=== PATIENT | female | born 1950 | race African-American/Black ===

== ENCOUNTER 2018-02-04 12:21 | Inpatient (IN) | payer MEDICARE, OTHER ==
[~2018-02-04] VITALS: Ht 162.6 cm; Wt 69.8 kg
--- NOTE | ~2018-02-04 | EKG ---
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: Slava REMY : 1950 Requested By: Michael Gutiérrez Order Number: [id number] MD: Christopher Osullivan Measurements Intervals [place] Rate: 63 P: 37 AR: 171 QRS: -2 QRSD: 87 T: -10 QT: 425 QTc: 436 Interpretive Statements Sinus rhythm Probable left atrial enlargement Borderline T abnormalities, inferior leads Compared to ECG 02/06/2018 10:09:09 No significant change was found Electronically Signed On 02-07-2018 7:35:38 CDT by Christopher Osullivan [email or web address] <ELECTRONICALLY SIGNED> By: Christopher Osullivan MD, [facility] 02/07/18 0735 1656 1656 Christopher Osullivan MD, [facility] /EPI
--- NOTE | ~2018-02-04 | EKG ---
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: Vanessa ALDANA : 1950 Requested By: Michael Gutiérrez Order Number: [id number] MD: Rao Neely Measurements Intervals [place] Rate: 67 P: 38 DC: 172 QRS: 19 QRSD: 89 T: 0 QT: 417 QTc: 441 Interpretive Statements Sinus rhythm Left atrial enlargement Probable left ventricular hypertrophy Compared to ECG 02/04/2018 14:50:45 Myocardial infarct finding no longer present Electronically Signed On 02-06-2018 16:38:11 CDT by Rao Neely [email or web address] <ELECTRONICALLY SIGNED> By: Rao Neely MD 02/06/18 1638 1009 1009 Rao Neely MD /NIKOLAI
--- NOTE | ~2018-02-04 | HC ---
[facility] [place] [address] CONSULTATION Name: DAVID RUVALCABA Room #: 226-P ADM IN M.R.#: [id number] Admission: 02/04/18 Attend Phys: oTm Sotelo MD Discharge: Date of : 46 Report #: [id number] THIS REPORT FOR: //name// CC: Ash Sotelo DATE OF SERVICE: 02/05/2018 INDICATION: Chest pain. HISTORY OF PRESENT ILLNESS: This is a pleasant 67-year-old female presenting with neck and arm pain. Over the weekend, she developed a sharp pain on the right side of her neck, radiating down the shoulder and right arm. There were no alleviating or aggravating factors. She was able to fall asleep. The next day, the pain had improved. She did take ibuprofen and tramadol. Yesterday, she developed feeling generalized weakness, mild chest discomfort. She denies any episodes of fever, palpitations, or diarrhea. PAST MEDICAL HISTORY: Cardiac catheterization in 2011 revealed nonobstructive CAD. Nuclear stress test from November 2017 is negative for ischemia with normal EF. The echo yesterday reveals normal LV systolic function. History of hypertension, hyperlipidemia. History of peripheral vascular disease with prior stents. History of chronic tobacco use and history of apical variant hypertrophic cardiomyopathy. ALLERGIES: CODEINE, MORPHINE. MEDICATIONS: Livalo 2 mg, albuterol, aspirin, Avalide and Lopressor. SOCIAL HISTORY: Smokes half a pack of cigarettes per day. FAMILY HISTORY: Negative for premature CAD. REVIEW OF SYSTEMS: A full 10-point review of systems performed. Only the pertinent positives and negatives are described in the HPI. PHYSICAL EXAMINATION: VITAL SIGNS: Blood pressure is 150/70, heart rate is 65 beats per minute. GENERAL APPEARANCE: A well-developed, well-nourished female in no acute respiratory distress. HEAD AND EYES: Normocephalic. Sclerae are anicteric. ENT: Oral mucosa moist. NECK: Supple. LUNGS: Clear to auscultation. CARDIAC: RRR. S1, S2 positive. ABDOMEN: Soft, nontender. [facility] [address] [place] [address] CONSULTATION Name: DAVID RUVALCABA JUNIORNoel Room #: 226-P [facility] IN M.R.#: [id number] Admission: 02/04/18 Attend Phys: Tom Sotelo MD Discharge: Date of : 46 Report #: [id number] EXTREMITIES: No cyanosis, no edema. LABORATORY VALUES: ECG reveals sinus rhythm, nonspecific T-wave abnormality. Peak troponin is 0.08. White count is 10.1, hemoglobin is 10.6. Sodium is 139. ASSESSMENT AND PLAN: 1. Chest pain syndrome, very mild symptoms. I do not believe this is related to a cardiac etiology. It may be more GI related, since she developed the ache after taking ibuprofen. 2. Coronary artery disease/history of nonobstructive coronary artery disease. She had a nuclear stress test 2 months ago that was nonischemic. I will continue with medical therapy. 3. Neck and shoulder pain, more likely related to musculoskeletal or neuropathy. Continue with pain meds. 4. Hypertension, continue with medications. 5. Tobacco use, complete smoking cessation is advised. <ELECTRONICALLY SIGNED> By: Michael Gutiérrez MD 02/06/18 0803 1258 1856 Michael Gutiérrez MD /nt
--- NOTE | ~2018-02-04 | EKG ---
[address] [place] [address] ELECTROCARDIOGRAM REPORT Name: DAVID RUVALCABA Room #: 407-P ADM IN M.R.#: [id number] Admission: 02/04/18 Attend Phys: Tom Sotelo MD Discharge: Date of : 46 Report #: [id number] THIS REPORT FOR: //name// [facility] ED Test Date: 2018-02-04 Test Time: 14:50:45 Pat Name: DAVID RUVALCABA Department: Room: 170 4 Gender: F Participant Administrator: Odette LAWRENCE : 1950 Requested By: Marcia Buenrostro Order Number: [id number] MD: Rao Neeyl Measurements Intervals [place] Rate: 64 P: 35 MA: 184 QRS: -9 QRSD: 88 T: -7 QT: 435 QTc: 449 Interpretive Statements Sinus rhythm Left atrial enlargement Inferior infarct, old Compared to ECG 10/25/2016 11:47:24 Myocardial infarct finding now present Electronically Signed On 02-05-2018 8:12:31 CDT by Rao Neely [email or web address] <ELECTRONICALLY SIGNED> By: Rao Neely MD 02/05/18811 1450 145 Rao Neely MD /NIKOLAI
--- NOTE | ~2018-02-04 | 2DMMODE ---
[facility] [address] [place] [address] 2 D/M-MODE ECHOCARDIOGRAM Name: DAVID RUVALCABA Room #: 407-P ADM IN M.R.#: [id number] Admission: 02/04/18 Attend Phys: Tom Sotelo MD Discharge: Date of : 46 Date of Service: 02/05/18 0958 Report #: [id number] THIS REPORT FOR: //name// APPROVED REPORT Study performed: 02/05/2018 09:09:54 EXAM: Comprehensive 2D, Doppler, and color-flow Echocardiogram Patient Location: Bedside Room #: 407 Status: routine BSA: 1.73 HR: 64 bpm BP: 140/74 mmHg Other Information Study Quality: Adequate Indications CAD Chest Pain Hypertension/HDD 2D Dimensions RVDd: 31.56 mm LVEF(%): 61.80 (>50%) IVSd: 10.49 (7-11mm) LVOT Diam: 19.40 (18-24mm) LVDd: 38.19 mm PWd: 10.43 (7-11mm) Ascending Ao: 25.89 (22-36mm) LVDs: 25.72 (25-40mm) Aortic Root: 24.15 mm IVC: 15.00 mm Ruiz's LVEF: 61.80 % Volumes Left Atrial Volume (Systole) Single Plane 4CH: 47.65 mL Single Plane 2CH: 39.90 mL LA ESV Index: 28.00 mL/m2 Aortic Valve AoV Peak Chicho.: 2.10 m/s AO Peak Gr.: 17.70 mmHg LVOT Max P.42 mmHg AO Mean Gr.: 8.79 mmHg LVOT Mean P.07 mmHg AO V2 Mean: 1.37 m/s LVOT Max V: 1.27 m/s AO V2 VTI: 46.33 cm LVOT Mean V: 0.81 m/s JUAN CARLOS (VTI): 2.09 cm2 LVOT V1 VTI: 32.77 cm JUAN CARLOS Vmax: 1.[address] [facility] [address] [place] [address] 2 D/M-MODE ECHOCARDIOGRAM Name: DAVID RUVALCABA LIBERTYNoel Room #: [facility] IN ..#: [id number] Admission: 02/04/18 Attend Phys: Tom Sotelo MD Discharge: Date of : 46 Date of Service: 02/05/18 0958 Report #: [id number] SV (LVOT): 96.79 mL Mitral Valve E/A Ratio: 0.7 MV Decel. Time: 243.77 ms MV E Max Chicho.: 0.93 m/s MV A Chicho.: 1.31 m/s MV PHT: 70.69 ms IVRT: 65.74 ms Pulmonary Valve PV Peak Chicho.: 1.04 m/s PV Peak Gr.: 4.34 mmHg Pulmonary Vein P Vein S: 0.72 m/s P Vein A: 0.26 m/s P Vein D: 0.44 m/s P Vein A Dur.: 110.7 msec P Vein S/D Ratio: 1.64 Tricuspid Valve TR Peak Chicho.: 2.64 m/s RAP Estimate: 5.00 mmHg TR Peak Gr.: 27.88 mmHg PA Pressure: 33.00 mmHg Left Ventricle The left ventricle is normal size. There is normal LV segmental wall motion. There is normal left ventricular wall thickness. The left ventricular systolic function is normal. The left ventricular ejection fraction is within the normal range. LVEF is 60-65%. Mild diastolic dysfunction is present (impaired relaxation pattern). Right Ventricle The right ventricle is normal size. The right ventricular systolic function is normal. Atria The left atrium size is normal. The right atrium size is normal. Aortic Valve The aortic valve is normal in structure. No aortic regurgitation is present. There is no aortic valvular stenosis. Mitral Valve Mild mitral annular calcification. Trace mitral regurgitation. No evidence [place] [address] 2 D/M-MODE ECHOCARDIOGRAM Name: DAVID RUVALCABA Room #: 407-P ADM IN M.R.#: [id number] Admission: 02/04/18 Attend Phys: Tom Sotelo MD Discharge: Date of : 46 Date of Service: 02/05/18 0958 Report #: [id number] Tricuspid Valve The tricuspid valve is normal in structure. Mild tricuspid regurgitation. PAP is estimated at 33 mmHg. Pulmonic Valve The pulmonary valve is normal in structure. Trace pulmonic regurgitation. Great Vessels The aortic root is normal in size. IVC is normal in size and collapses >50% with inspiration. Pericardium There is no pericardial effusion. <Conclusion> The left ventricular systolic function is normal. There is normal LV segmental wall motion. LVEF 60-65%. The aortic valve is normal in structure. No aortic regurgitation or stenosis Mild mitral annular calcification. Trace mitral regurgitation. Mild tricuspid regurgitation. Pulmonary artery pressure estimated at 33 mmHg. There is no pericardial effusion. <ELECTRONICALLY SIGNED> By: Christopher Osullivan MD, [facility] 02/05/1858 7 Christopher Osullivan MD, [facility] /INF
--- NOTE | ~2018-02-04 | EKG ---
[place] [address] [facility] [place] [address] ELECTROCARDIOGRAM REPORT Name: DAVID RUVALCABA Room #: 239-P ADM IN M.R.#: [id number] Admission: 02/04/18 Attend Phys: Tom Sotelo MD Discharge: Date of : 46 Report #: [id number] THIS REPORT FOR: //name// 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 Director: SALAS : 1950 Requested By: Michael Gutiérrez Order Number: [id number] MD: Christopher Osullivan Measurements Intervals [place] Rate: 66 P: 0 PA: 57 QRS: -50 QRSD: 173 T: 103 QT: 565 QTc: 593 Interpretive Statements A-V dual-paced rhythm with some inhibition No further analysis attempted due to paced rhythm Compared to ECG 02/06/2018 10:09:09 AV pacing now present Electronically Signed On 02-07-2018 7:55:45 CDT by Christopher Osullivan [email or web address] <ELECTRONICALLY SIGNED> By: Christopher Osullivan MD, [facility] 02/07/18 0755 0639 0639 Christopher Osullivan MD, [facility] /EPI
--- NOTE | ~2018-02-04 | CATHLAB ---
[facility] [address] [place] [address] INVASIVE PROCEDURE REPORT Name: DAVID RUVALCABA Room #: 239-P ADM IN M.R.#: [id number] Admission: 02/04/18 Attend Phys: Tom Sotelo MD Discharge: Date of : 46 Date of Service: 02/06/18 1728 Report #: [id number] THIS REPORT FOR: //name// APPROVED REPORT Study performed: 02/06/2018 12:17:14 Patient Details Patient Status: In-Patient Room #: The patient is a 67 year-old female Event Personnel Michael Gutiérrez Reading Recovery Teacher, Laurence Gilmore Partnoy, Nancy RTR, STOCK BROKER Monitor, Klarissa Vasquez RN RN, Sophia Villar RN sewing machine operator Performed Art Access - R femoral artery* Left Heart Cath w/or w/o Coronaries [id number] [facility] Place w/wo Plasty Single RCA 275613 11247 Initial Mod Sed Same Phys/QHP Gr5y 512012 34713 Mod Sed Same Phys/QHP Ea 951592 Hemostasis with Manual pressure Indication Dyspnea, Unstable angina , Chest pain Risk Factors Hypercholesterolemia, Coronary Artery DiseaseHypertension, Tobacco History () Procedure Narrative The Right Groin^ was infiltrated with 1% Lidocaine subcutaneous anesthesia. A PINNACLE 4FR Sheath #[id number] sheath was inserted into the RFA^. Coronary angiography was performed using coronary diagnostic catheters. The right coronary system was accessed and visualized with a JR4 catheter. The left coronary system was accessed and visualized with a JL4 catheter. The left ventricle was accessed and visualized with a JR4 catheter. Left ventricular/Aortic Valve gradient assessed via catheter pullback. Pre-demployment femoral angiogram was performed . Hemostasis was obtained with manual pressure following sheath removal without any complications. The patient tolerated the procedure well and there were no complications associated with the procedure. Intraoperative Conscious Sedation Sedation start time: 12:43 Case end Time: [facility] [address] [place] [address] INVASIVE PROCEDURE REPORT Name: DAVID RUVALCABA Room #: 239-P [facility] IN [facility].#: [id number] Admission: 02/04/18 Attend Phys: Tom Sotelo MD Discharge: Date of : 46 Date of Service: 02/06/18 1728 Report #: [id number] 14:35 Fentanyl 100 mcg Versed 2 mg Fluoro Time: 44.02 minutes Dose: DAP 91691.40 cGycm2 4867 mGy Contrast Type and Amount: Omnipaque 395 ml Coronary Angiography The patient's coronary anatomy is right dominant. Diagnostic Cath Left Main Patent vessel, no flow limiting lesions. LAD Moderate size caliber vessel, traveling down the anterior wall and wrapping around the apex. There is a mild to moderate stenosis in the proximal segment, 40%. Diagonal 1 Mild disease at the ostium, 30%. Circumflex Mild to moderate disease in the proximal segment, 40%. OM1 Patent vessel, no flow-limiting lesions. OM2 Patent vessel, no flow-limiting lesions. Right Coronary Dominant vessel with a total occlusion in the proximal segment. The distal vessel is partially filled via collateral circulation. IVUS Findings Euphora RX 2.25 x 15 #[id number] Hemodynamics The aortic pressure is 176/67 mmHg with a mean of 106 mmHg. The left ventricular pressure is 192/14 mmHg with a mean of mmHg. The left ventricular end diastolic pressure is 30 mmHg. PCI Technique Lesion Anticoagulation was achieved with Angiomax. Patient was preloaded with Brillinta. Percutaneous coronary intervention was performed on the mid right coronary artery. The lesion stenosis prior to intervention was 100% with GONZALO 0 flow. A LAUNCHER 6FR JR 4 #[id number] Guide Catheter was used to engage the ostium. A Whisper Wire .014 x 190 #[id number] Interventional Guidewire was used to cross the lesion. BALLOON DILATION A Balloon catheter MINI TREK OTW 1.20 X 12 #[id number] was inserted and inflated up to 14.00atm for 24seconds. Additional Inflation: 16.00atm for 26seconds. Additional Inflation: 18.00atm for 34seconds. [facility] [address] [place] [address] INVASIVE PROCEDURE REPORT Name: PEGDAVID BELLE Room #: 239-P [facility] IN M.R.#: [id number] Admission: 02/04/18 Attend Phys: Tom Sotelo MD Discharge: Date of : 46 Date of Service: 02/06/18 1728 Report #: [id number] STENT DEPLOYMENT A drug-eluting stent XIENCE ALPINE RX 2.5 X 38 #[id number] was inserted and inflated up to 16.00atm for 17seconds. POST STENT DEPLOYMENT BALLOON DILATION A Balloon catheter TREK NC RX 2.5 X 15 #[id number] was inserted and inflated up to 18atm for 16seconds. Additional Inflation: 18atm for 12seconds. Final angiography reveals 0 % stenosis with GONZALO 3 flow. BALLOON DILATION A Balloon catheter Euphora RX 2.25 x 15 #[id number] was inserted and inflated up to 4.00atm for 7seconds. Additional Inflation: 8.00atm for 13seconds. PCI Technique Lesion 2 Percutaneous Coronary Intervention was performed on the proximal right coronary artery. Patient was preloaded with Brillinta. Percutaneous coronary intervention was performed on the proximal right coronary artery. The lesion stenosis prior to intervention was 100% with GONZALO 0 flow. A LAUNCHER 6FR JR 4 #[id number] Guide Catheter was used to engage the ostium. A Luge Wire .014 x 182CM #[id number] Interventional Guidewire was used to cross the lesion. Balloon Dilation A Balloon catheter MINI TREK OTW 1.20 X 12 #[id number] was inserted and inflated up to 16.00atm for 23seconds. Stent Deployment A drug-eluting stent XIENCE ALPINE RX 2.75 X 18 #[id number] was inserted and inflated up to 14.00atm for 21seconds. Post Stent Deployment Balloon Dilation A Balloon catheter TREK NC RX 2.5 X 15 #[id number] was inserted and inflated up to 18.00atm for 14seconds. Final angiography reveals 0 % stenosis with GONZALO 3 flow. PCI Technique Lesion A LAUNCHER 6FR JR 4 #[id number] Guide Catheter was used to engage the ostium. A Luge Wire .014 x 182CM #[id number] Interventional Guidewire was used to cross the lesion. BALLOON DILATION A Balloon catheter Euphora RX 2.25 x 15 #[id number] was inserted and [facility] [address] [address] INVASIVE PROCEDURE REPORT Name: DAVID RUVALCABA Room #: 239-P ADM IN M.R.#: [id number] Admission: 02/04/18 Attend Phys: oTm Sotelo MD Discharge: Date of : 46 Date of Service: 02/06/18 1728 Report #: [id number] inflated up to 10atm for 15seconds. PCI Technique Lesion 3 Percutaneous Coronary Intervention was performed on the right posterior descending artery. Patient was preloaded with Brillinta. Percutaneous coronary intervention was performed on the right posterior descending artery. The lesion stenosis prior to intervention was 90% with GONZALO 2 flow. A LAUNCHER 6FR JR 4 #[id number] Guide Catheter was used to engage the ostium. A Luge Wire .014 x 182CM #[id number] Interventional Guidewire was used to cross the lesion. Balloon Dilation A Balloon catheter Euphora RX 2.0 x12 #[id number] was inserted and inflated up to 6.00atm for 13seconds. Additional Inflation: 8atm for 8seconds. Stent Deployment A drug-eluting stent XIENCE ALPINE RX 2.25 X 28 #[id number] was inserted and inflated up to 10.00atm for 9seconds. Additional Inflation: 18.00atm for 12seconds. Post Stent Deployment Balloon Dilation A Balloon catheter TREK NC RX 2.5 X 15 #[id number] was inserted and inflated up to 16.00atm for 6seconds. Final angiography reveals 0 % stenosis with GONZALO 3 flow. Conclusion 1. Successful insertion of drug-eluting stents into the total occlusion in the RCA, with religion of GONZALO-3 blood flow to the PDA and posterior lateral branches. 2. Mild to moderate disease in the LAD and left circumflex arteries. 3. Recommend dual antiplatelet therapy. <ELECTRONICALLY SIGNED> By: Michael Gutiérrez MD 02/06/188 27 27 Michael Gutiérrez MD /INF
--- NOTE | ~2018-02-04 | EKG ---
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: JAdelaida : 1950 Requested By: Marcia Buenrostro Order Number: [id number] MD: Rao Neely Measurements Intervals [place] Rate: 61 P: 29 SD: 181 QRS: -9 QRSD: 90 T: -11 QT: 446 QTc: 450 Interpretive Statements Sinus rhythm Left atrial enlargement Probable left ventricular hypertrophy Borderline T abnormalities, inferior leads Compared to ECG 10/25/2016 11:47:24 T-wave abnormality now present Electronically Signed On 02-05-2018 8:11:53 CDT by Rao Neely [email or web address] <ELECTRONICALLY SIGNED> By: Rao Neely MD 02/05/18 0811 1257 1257 Rao Neely MD /EPI
[~2018-02-04 12:21] MED LIST: ADULT LOW DOSE81 MG PO; ALBUTEROL INH OR; ASPIRIN EC325 M1 PO; AVAPRO300 MG PO; AZITHROMYCIN 2250 MG PO; BENICAR40 MG PO; CEPHALEXIN 500500 M1 PO; CLARITIN10 MG PO; CRESTOR10 MG PO; FLEXERIL PO; FLONASE 0.05%50 MCG NASAL; FLONASE 0.05%50 MCG NS; LOPRESSOR25 PO; LORTABELXR PO; METHYLPREDNISOLO4 M1; NORCO 5-325 TA1 EACH PO; PROTONIX40 MG PO; SIMVASTATIN40 MG PO; VIBRAMYCIN100 MG PO; VICODIN 5-5001 EACH PO; ZOFRAN ODT4 MG PO; ZPAK PO
[2018-02-04 12:28] VITALS: BP 162/65
[2018-02-04] MEDS ORDERED: LOPRESSOR25 PO (12:33)
[2018-02-04] MEDS ORDERED: LIVALO2 MG PO (12:34)
[2018-02-04 13:01] LABS: ABSOLUTE NEUTROPHILS 8.8 thou/uL (1.4-8.2); BASOPHILS 0.4 % (0.0-2.0); EOSINOPHILS 0.7 % (0.0-3.0); HEMATOCRIT 31.7 % (37.0-47.0); HEMOGLOBIN 11.1 gm/dL (12.0-15.0); LYMPHOCYTES 10.5 % (24.0-44.0); MCH 32.9 pg (26.0-34.0); MCHC 34.9 g/dL (28.0-37.0); MCV 94.1 fL (80.0-100.0); MONOCYTES 3.5 % (1.0-8.0); PLATELET COUNT 243 thou/uL (150-400); POLYS 84.9 % (36.0-66.0); RBC 3.37 mil/uL (4.20-5.00); RDW 14.4 % (10.5-14.5); WBC 10.3 thou/uL (4.0-11.0)
[2018-02-04 13:13] LABS: CALCIUM 9.5 mg/dL (8.5-10.1); CREATININE 0.9 mg/dL (0.6-1.0); POTASSIUM 3.7 mmol/L (3.5-5.1)
[2018-02-04 13:23] LABS: ALBUMIN 3.6 g/dL (3.4-5.0); TOTAL BILIRUBIN 0.4 mg/dL (<0.1-1.0); TOTAL PROTEIN 7.4 g/dL (6.4-8.2); TROPONIN-I 0.08 ng/mL (<0.06)
[2018-02-04 15:20] VITALS: BP 145/33
[2018-02-04 15:22] VITALS: BP 179/61
[2018-02-04 20:00] VITALS: BP 144/55
[2018-02-05 00:54] LABS: HEMATOCRIT 30.6 % (37.0-47.0); HEMOGLOBIN 10.6 gm/dL (12.0-15.0); MCH 32.8 pg (26.0-34.0); MCHC 34.8 g/dL (28.0-37.0); MCV 94.1 fL (80.0-100.0); RBC 3.25 mil/uL (4.20-5.00); RDW 14.4 % (10.5-14.5); WBC 10.1 thou/uL (4.0-11.0)
[2018-02-05 01:03] LABS: CALCIUM 9.4 mg/dL (8.5-10.1); CREATININE 0.9 mg/dL (0.6-1.0); POTASSIUM 3.4 mmol/L (3.5-5.1)
[2018-02-05 04:00] VITALS: BP 140/74
[2018-02-05 07:25] VITALS: BP 154/61
[2018-02-05 15:38] VITALS: BP 156/64
[2018-02-05 21:00] VITALS: BP 157/60
[2018-02-06] VITALS (35 sets, daily range): BP systolic 104–181; BP diastolic 53–95
[2018-02-07] VITALS (14 sets, daily range): BP systolic 104–167; BP diastolic 42–92
[2018-02-07 05:14] LABS: HEMATOCRIT 31.8 % (37.0-47.0); HEMOGLOBIN 10.6 gm/dL (12.0-15.0); MCH 31.5 pg (26.0-34.0); MCHC 33.4 g/dL (28.0-37.0); MCV 94.4 fL (80.0-100.0); RBC 3.37 mil/uL (4.20-5.00); RDW 14.2 % (10.5-14.5); WBC 18.5 thou/uL (4.0-11.0)
[2018-02-07 05:19] LABS: POTASSIUM 3.8 mmol/L (3.5-5.1)
[2018-02-07 05:34] LABS: ALBUMIN 3.2 g/dL (3.4-5.0); CALCIUM 9.5 mg/dL (8.5-10.1); TOTAL BILIRUBIN 0.3 mg/dL (<0.1-1.0); TOTAL PROTEIN 6.9 g/dL (6.4-8.2); TROPONIN-I 0.08 ng/mL (<0.06)
[2018-02-08 04:28] VITALS: BP 142/65
[2018-02-08 08:36] VITALS: BP 150/65
[2018-02-08] MEDS ORDERED: BRILINTA90 MG PO (10:12)
[2018-02-08 11:28] VITALS: BP 150/65
== END 2018-02-08 12:13 | disposition home or self-care (01) | DRG 246 ==
LOC: ER 12:21 → EROBS 14:35 → 4N 14:35 → SICU 02-05 22:19 → 2N 02-06 14:36 → ICU 02-06 15:43 → 2N 02-07 10:58 → ENTRNSPT 02-08 12:07 → 2N 02-08 12:13
PROVIDERS: Hospitalist; Internal Medicine Cardiovascular Disease; Physician Assistant
DX: I25.119 Atherosclerotic heart disease of native coronary artery with unspecified angina pectoris (principal); E43 Unspecified severe protein-calorie malnutrition; I73.9 Peripheral vascular disease, unspecified; M54.12 Radiculopathy, cervical region; I10 Essential (primary) hypertension; E78.5 Hyperlipidemia, unspecified; I42.2 Other hypertrophic cardiomyopathy; F17.210 Nicotine dependence, cigarettes, uncomplicated; E78.00 Pure hypercholesterolemia, unspecified; M50.320 Other cervical disc degeneration, mid-cervical region, unspecified level; I77.1 Stricture of artery; Z79.82 Long term (current) use of aspirin; Z79.899 Other long term (current) drug therapy; Z90.710 Acquired absence of both cervix and uterus; Z90.49 Acquired absence of other specified parts of digestive tract; Z88.6 Allergy status to analgesic agent; Z68.26 Body mass index [BMI] 26.0-26.9, adult
CPT/HCPCS: 10081; 10204; 10790; 15002

== ENCOUNTER → 2018-08-08 | Outpatient (CLI) | payer MEDICARE ==
[~2018-08-08] MED LIST changes: +ATIVAN0.5 MG PO; +BRILINTA90 MG PO; +LIVALO2 MG PO; +NITROGLYCERIN0.4 MG SUBLING; +PLAVIX 75 MG TA75 MG PO
== END ==
LOC: RAD 08:57
DX: R06.02 Shortness of breath (principal); I25.10 Atherosclerotic heart disease of native coronary artery without angina pectoris

== ENCOUNTER 2018-08-13 16:42 | Emergency (ER) | payer MEDICARE ==
[~2018-08-13] VITALS: Ht 162.6 cm; Wt 68.0 kg
--- NOTE | ~2018-08-13 | EKG ---
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 : 1950 Requested By: Eliceo Beard Order Number: [id number] MD: Rao Neely Measurements Intervals [place] Rate: 94 P: 56 VT: 153 QRS: 9 QRSD: 96 T: -6 QT: 346 QTc: 433 Interpretive Statements Sinus rhythm LAE, consider biatrial enlargement Borderline T abnormalities, inferior leads Compared to ECG 02/07/2018 06:39:06 T-wave abnormality now present Ventricular-paced complex(es) or rhythm no longer present Electronically Signed On 08-13-2018 21:42:09 LABORER SHAFT SINKING by Rao Neely [email or web address] <ELECTRONICALLY SIGNED> By: Rao Neely MD 08/13/18 214 51 51 Rao Neely MD /EPI
[~2018-08-13 16:42] MED LIST changes: -ATIVAN0.5 MG PO; -NITROGLYCERIN0.4 MG SUBLING; -PLAVIX 75 MG TA75 MG PO
[2018-08-13 17:06] LABS: ABSOLUTE NEUTROPHILS 11.9 thou/uL (1.4-8.2); BASOPHILS 0.3 % (0.0-2.0); EOSINOPHILS 0.1 % (0.0-3.0); HEMATOCRIT 34.5 % (37.0-47.0); HEMOGLOBIN 11.8 gm/dL (12.0-15.0); LYMPHOCYTES 11.5 % (24.0-44.0); MCH 31.6 pg (26.0-34.0); MCV 92.9 fL (80.0-100.0); MONOCYTES 4.3 % (1.0-8.0); PLATELET COUNT 277 thou/uL (150-400); POLYS 83.8 % (36.0-66.0); RBC 3.72 mil/uL (4.20-5.00); RDW 16.6 % (10.5-14.5); WBC 14.2 thou/uL (4.0-11.0)
[2018-08-13 17:13] LABS: CALCIUM 9.9 mg/dL (8.5-10.1); CREATININE 1.1 mg/dL (0.6-1.0); POTASSIUM 3.9 mmol/L (3.5-5.1)
[2018-08-13] MEDS ORDERED: PLAVIX 75 MG TA75 MG PO (17:15)
[2018-08-13 17:21] LABS: ALBUMIN 3.7 g/dL (3.4-5.0); MAGNESIUM 1.7 mg/dL (1.8-2.4); TOTAL BILIRUBIN 0.4 mg/dL (<0.1-1.0); TOTAL PROTEIN 7.7 g/dL (6.4-8.2); TROPONIN-I 0.36 ng/mL (<0.06)
[2018-08-13] MEDS ORDERED: ATIVAN0.5 MG PO (17:59)
[2018-08-13] MEDS ORDERED: NITROGLYCERIN0.4 MG SUBLING (17:59)
[2018-08-13 18:24] VITALS: BP 155/48
== END 2018-08-13 18:25 | disposition home or self-care (01) ==
LOC: ER 16:42
PROVIDERS: Emergency Medicine
DX: F43.20 Adjustment disorder, unspecified (principal); F45.8 Other somatoform disorders; R07.89 Other chest pain; Z90.49 Acquired absence of other specified parts of digestive tract; Z90.710 Acquired absence of both cervix and uterus; F17.210 Nicotine dependence, cigarettes, uncomplicated; Z88.5 Allergy status to narcotic agent

== ENCOUNTER → 2018-10-25 | Outpatient (CLI) | payer MEDICARE ==
[~2018-10-25] MED LIST changes: +ATIVAN0.5 MG PO; +NITROGLYCERIN0.4 MG SUBLING; +PLAVIX 75 MG TA75 MG PO
== END ==
LOC: NUC 10-11 11:18
DX: I25.10 Atherosclerotic heart disease of native coronary artery without angina pectoris (principal); E78.5 Hyperlipidemia, unspecified; I10 Essential (primary) hypertension; I73.9 Peripheral vascular disease, unspecified; F17.210 Nicotine dependence, cigarettes, uncomplicated; Z79.899 Other long term (current) drug therapy; Z88.8 Allergy status to other drugs, medicaments and biological substances

== ENCOUNTER → 2019-04-09 | Outpatient (CLI) | payer MEDICARE | LOC: RAD 09:36 | DX: M11.262 Other chondrocalcinosis, left knee (principal); M25.762 Osteophyte, left knee ==

== ENCOUNTER → 2019-08-15 | Outpatient (CLI) | payer MEDICARE ==
--- NOTE | 2019-08-15 15:19 | 2DMMODE ---
[facility] [address] [place] [address] 2 D/M-MODE ECHOCARDIOGRAM Name: DAVID RUVALCABA Room #: REG [facility]#: [id number] Admission: 08/15/19 Attend Phys: Michael Gutiérrez MD Discharge: Date of : 46 Report #: [id number] THIS REPORT FOR: //name// APPROVED REPORT Study performed: 08/15/2019 14:07:49 EXAM: Comprehensive 2D, Doppler, and color-flow Echocardiogram Patient Location: Out-Patient Room #: Echo lab 1 Status: routine BSA: 1.73 HR: 67 bpm BP: 162/82 mmHg Rhythm: NSR Other Information Study Quality: Good Indications CAD Hypertension/HDD 2D Dimensions RVDd: 35.38 mm IVSd: 15.70 (7-11mm) LVOT Diam: 18.07 (18-24mm) LVDd: 34.83 mm PWd: 15.16 (7-11mm) Ascending Ao: 24.07 (22-36mm) LVDs: 24.02 (25-40mm) Aortic Root: 26.78 mm IVC: 12.00 mm Volumes Left Atrial Volume (Systole) Single Plane 4CH: 82.84 mL Single Plane 2CH: 60.01 mL LA ESV Index: 46.00 mL/m2 Aortic Valve AoV Peak Chicho.: 1.94 m/s AO Peak Gr.: 15.00 mmHg LVOT Max P.28 mmHg LVOT Max V: 1.03 m/s JUAN CARLOS Vmax: 1.37 cm2 Mitral Valve E/A Ratio: 0.9 MV Decel. Time: 229.65 ms [facility] [address] [place] [address] 2 D/M-MODE ECHOCARDIOGRAM Name: DAVID RUVALCABA Room #: REG [facility]#: [id number] Admission: 08/15/19 Attend Phys: Michael Gutiérrez MD Discharge: Date of : 48 Report #: [id number] MV E Max Chicho.: 0.98 m/s MV A Chicho.: 1.06 m/s MV PHT: 66.60 ms IVRT: 133.79 ms Pulmonary Valve PV Peak Chicho.: 0.96 m/s PV Peak Gr.: 3.69 mmHg Pulmonary Vein P Vein S: 0.54 m/s P Vein A: 0.26 m/s P Vein D: 0.41 m/s P Vein A Dur.: 87.7 msec P Vein S/D Ratio: 1.32 Tricuspid Valve TR Peak Chicho.: 2.59 m/s TR Peak Gr.: 26.75 mmHg PA Pressure: 32.00 mmHg Left Ventricle The left ventricle is normal size. There is normal LV segmental wall motion. Moderate concentric left ventricular hypertrophy. The left ventricular systolic function is normal. The left ventricular ejection fraction is within the normal range. LVEF is 55-60%. Grade I - abnormal relaxation pattern. Right Ventricle The right ventricle is normal size. The right ventricular systolic function is normal. Atria Left atrium is moderately dilated. Right atrium is at the upper limits of normal. Aortic Valve The aortic valve is normal in structure. No aortic regurgitation is present. There is no aortic valvular stenosis. Mitral Valve The mitral valve is normal in structure. Mitral valve leaflets are thickened. Mild mitral regurgitation. No evidence of mitral valve stenosis. Tricuspid Valve The tricuspid valve is normal in structure. There is trace tricuspid regurgitation. Estimated PAP 32 mmHg. There is mild pulmonary hypertension. [facility] [address] [place] [address] 2 D/M-MODE ECHOCARDIOGRAM Name: DAVID RUVALCABA Room #: REG [facility]#: [id number] Admission: 08/15/19 Attend Phys: Michael Gutiérrez MD Discharge: Date of : 46 Report #: [id number] Pulmonic Valve The pulmonary valve is normal in structure. There is no pulmonic valvular regurgitation. Great Vessels The aortic root is normal in size. IVC is normal in size and collapses >50% with inspiration. Pericardium There is no pericardial effusion. <Conclusion> The left ventricle is normal size. Moderate concentric left ventricular hypertrophy. The left ventricular systolic function is normal. Grade I - abnormal relaxation pattern. The right ventricle is normal size. Left atrium is moderately dilated. The aortic valve is normal in structure. Mild mitral regurgitation. There is trace tricuspid regurgitation. Estimated PAP 32 mmHg. <ELECTRONICALLY SIGNED> By: Michael Gutiérrez MD 08/15/191518 18 18 Michael Gutiérrez MD /INF
== END ==
LOC: CV 10:55
DX: I34.0 Nonrheumatic mitral (valve) insufficiency (principal); I25.10 Atherosclerotic heart disease of native coronary artery without angina pectoris; I11.9 Hypertensive heart disease without heart failure; I27.20 Pulmonary hypertension, unspecified

== ENCOUNTER 2019-08-30 23:08 | Emergency (ER) | payer MEDICARE ==
[~2019-08-30] VITALS: Ht 162.6 cm; Wt 69.5 kg
[2019-08-31] MEDS ORDERED: VALSARTAN-HCTZ1 EAC4 PO (01:26)
[2019-08-31] MEDS ORDERED: CARVEDILOL12.5 MG PO (01:27)
[2019-08-31] MEDS ORDERED: RAYOS5 MG PO (01:28)
[2019-08-31] MEDS ORDERED: AMOX TR-K CLV1 EAC3 PO (01:29)
[2019-08-31] MEDS ORDERED: LIVALO2 MG PO (01:30)
[2019-08-31] MEDS ORDERED: PROAIR DIGIHAL90 MCG INH (01:32)
[2019-08-31 01:55] LABS: ABSOLUTE NEUTROPHILS 8.9 thou/uL (1.4-8.2); BASOPHILS 0.2 % (0.0-2.0); EOSINOPHILS 0.1 % (0.0-3.0); HEMATOCRIT 32.2 % (37.0-47.0); HEMOGLOBIN 10.9 gm/dL (12.0-15.0); LYMPHOCYTES 13.1 % (24.0-44.0); MCH 31.4 pg (26.0-34.0); MCHC 33.8 g/dL (28.0-37.0); MCV 92.7 fL (80.0-100.0); PLATELET COUNT 244 thou/uL (150-400); POLYS 82.6 % (36.0-66.0); RBC 3.47 mil/uL (4.20-5.00); WBC 10.7 thou/uL (4.0-11.0)
[2019-08-31 02:06] LABS: ANION GAP 13 mmol/L (7-16); BUN 16 mg/dL (7-18); CALCIUM 9.6 mg/dL (8.5-10.1); CHLORIDE 98 mmol/L (98-107); CO2 23 mmol/L (21-32); CREATININE 0.9 mg/dL (0.6-1.0); GLUCOSE 167 mg/dL (74-106); POTASSIUM 3.6 mmol/L (3.5-5.1); SODIUM 134 mmol/L (136-145)
[2019-08-31 02:15] LABS: TROPONIN-I <0.06 ng/mL (<0.06)
[2019-08-31 03:53] VITALS: BP 163/87
--- NOTE | 2019-08-31 15:20 | EKG ---
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: LISSY : 1950 Requested By: Jefferson Lira Order Number: [id number] MD: Christopher Osullivan Measurements Intervals [place] Rate: 70 P: 20 MS: 164 QRS: -3 QRSD: 89 T: 13 QT: 407 QTc: 440 Interpretive Statements Sinus rhythm Atrial premature complexes Compared to ECG 08/13/2018 16:52:53 Atrial premature complex(es) now present Electronically Signed On 08-31-2019 15:20:27 ATM TECHNICIAN by Christopher Osullivan [email or web address] <ELECTRONICALLY SIGNED> By: Christopher Osullivan MD, [facility] 08/31/19 1520 2315 2315 Christopher Osullivan MD, FACC /EPI
== END 2019-08-31 04:00 | disposition home or self-care (01) ==
LOC: ER 23:08
PROVIDERS: Emergency Medicine
DX: J98.8 Other specified respiratory disorders (principal); R07.9 Chest pain, unspecified; J44.9 Chronic obstructive pulmonary disease, unspecified; F17.210 Nicotine dependence, cigarettes, uncomplicated; Z90.710 Acquired absence of both cervix and uterus; Z90.49 Acquired absence of other specified parts of digestive tract; Z88.6 Allergy status to analgesic agent

== ENCOUNTER → 2020-02-19 | Outpatient (CLI) | payer MEDICARE ==
[~2020-02-19] MED LIST changes: +AMOX TR-K CLV1 EAC3 PO; +CARVEDILOL12.5 MG PO; +PROAIR DIGIHAL90 MCG INH; +RAYOS5 MG PO; +VALSARTAN-HCTZ1 EAC4 PO
== END ==
LOC: SJCVCIMAG 09:06
PROVIDERS: ATTEND Internal Medicine Cardiovascular Disease
DX: I49.3 Ventricular premature depolarization (principal); I42.9 Cardiomyopathy, unspecified; I25.10 Atherosclerotic heart disease of native coronary artery without angina pectoris; I10 Essential (primary) hypertension; E78.5 Hyperlipidemia, unspecified; J44.9 Chronic obstructive pulmonary disease, unspecified; E78.00 Pure hypercholesterolemia, unspecified; F17.210 Nicotine dependence, cigarettes, uncomplicated; Z79.82 Long term (current) use of aspirin; Z79.899 Other long term (current) drug therapy; Z82.49 Family history of ischemic heart disease and other diseases of the circulatory system

== ENCOUNTER → 2020-06-16 | Outpatient (CLI) | payer MEDICARE | LOC: CAT 10:01 | PROVIDERS: ATTEND Internal Medicine | DX: Z12.2 Encounter for screening for malignant neoplasm of respiratory organs (principal); I51.7 Cardiomegaly; I25.10 Atherosclerotic heart disease of native coronary artery without angina pectoris; J98.4 Other disorders of lung; Z87.891 Personal history of nicotine dependence ==

== ENCOUNTER → 2020-06-18 | Outpatient (CLI) | payer MEDICARE | LOC: LAB 11:27 | PROVIDERS: ATTEND Internal Medicine | DX: Z01.812 Encounter for preprocedural laboratory examination (principal); Z20.828 Contact with and (suspected) exposure to other viral communicable diseases ==

== ENCOUNTER → 2020-06-22 | Outpatient (CLI) | payer MEDICARE ==
--- NOTE | 2020-06-27 16:58 | MCT ---
[facility] [place] [address] METHACHOLINE CHALLENGE TEST Name: PEGDAVID BELLE Room #: REG [facility] Kelly#: [id number] Admission: 06/22/20 Attend Phys: Piyush Beltre MD Discharge: Date of : 46 Report #: [id number] THIS REPORT FOR: //name// COPIES FOR: AGE: 70 SEX/RACE: F/B Height: in Exam Date: Weight: lbs BTPS: X >> PRE BRONCHODILATOR: PREDICTED BEST %PRED FORCED VITAL CAPACITY (FRC) L LPM % FORCED EXP VOL/SEC (FEV1) L FEV/FVC % MAX MID-EXP FLOW (FEF 25-75) L/SEC L/SEC % PEAK EXP FLOW RATE (FEF MAX) L/MIN L/MIN MED-VC RATIO (FEF 50/FEF 50) .09 Baseline: Phenol Saline Level 1: 0.025 mg/ml BEST %PRED %CHANGE BEST %PRED %CHANGE FVC 2.22 L 80 % % FVC 2.30 L 83 % 4 % FEV1 1.46 L 74 % % FEV1 1.59 L 81 % 9 % Level 2: 0.25 mg/ml Level 3: 2.5 mg/ml BEST %PRED %CHANGE BEST %PRED %CHANGE FVC 2.11 L 76 % -5 % FVC 2.06 L 74 % -7 % FEV1 1.47 L 75 % 1 % FEV1 1.43 L 73 % -2 % . Level 4: 10 mg/ml Level 5: 25 mg/ml BEST %PRED %CHANGE BEST %PRED %CHANGE FVC 2.15 L 77 % -3 % FVC 2.19 L 79 % -1 % FEV1 1.52 L 77 % 4 % FEV1 1.55 L 79 % 6 % Post Bronchodilator: 1st Treatment Post Bronchodilator: 2nd Treatment BEST %PRED %CHANGE BEST %PRED %CHANGE FVC 2.07 L 74 % -7 % FVC L % % FEV1 1.48 L 75 % 1 % FEV1 L % % Post Bronchodilator: 3rd Treatment BEST %PRED %CHANGE [facility] [address] [place] [address] METHACHOLINE CHALLENGE TEST Name: DAVID RUVALCABA Room #: REG [facility].#: [id number] Admission: 06/22/20 Attend Phys: Piyush Beltre MD Discharge: Date of : 46 Report #: [id number] FVC L % % FEV1 L % % >> INTERPRETATION: CC: Ash Beltre METHACHOLINE CHALLENGE TEST ORDERING PHYSICIAN: Piyush Beltre MD Methacholine challenge test was completed in a routine style. Baseline FEV1 is 1.46 liters (74%), with increasing doses of methacholine per protocol. Five treatments were given without significant response. FEV1 decreased to 1.55 liters, which is 79% predicted. There was no change in FVC or FEF 25-75% range. IMPRESSION: Negative methacholine challenge test. <ELECTRONICALLY SIGNED> By: Dawit Wilkinson MD 06/27/20 1658 Dawit Wilkinson MD /nt
== END ==
LOC: PUL 10:09
PROVIDERS: ATTEND Internal Medicine
DX: R06.02 Shortness of breath (principal); Z88.8 Allergy status to other drugs, medicaments and biological substances

== ENCOUNTER → 2020-07-09 | Outpatient (CLI) | payer MEDICARE | LOC: LAB 13:39 | PROVIDERS: ATTEND Internal Medicine | DX: Z01.812 Encounter for preprocedural laboratory examination (principal); Z20.828 Contact with and (suspected) exposure to other viral communicable diseases ==

== ENCOUNTER 2020-07-13 09:48 | Emergency (ER) | payer MEDICARE ==
[~2020-07-13] VITALS: Ht 162.6 cm; Wt 69.8 kg
[2020-07-13 10:26] LABS: URINE BILIRUBIN NEGATIVE (Negative); URINE BLOOD 1+ (Negative); URINE CLARITY CLEAR; URINE COLOR YELLOW; URINE GLUCOSE-RANDOM* NEGATIVE (Negative); URINE KETONES NEGATIVE (Negative); URINE LEUKOCYTES-REFLEX NEGATIVE (Negative); URINE NITRITE-REFLEX NEGATIVE (Negative); URINE PROTEIN (DIPSTICK) NEGATIVE (Negative); URINE SPECIFIC GRAVITY <= 1.005 (1.005-1.035); URINE UROBILINOGEN 0.2 E.U./dl (0.2-1.0)
[2020-07-13 10:50] LABS: BACTERIA-REFLEX 1-9 Few /HPF (None Seen); CASTS None Seen /LPF (None Seen); CRYSTALS None Seen /LPF (None Seen); SQUAMOUS 0-3 Few /LPF (0-3); URINE RBC 0-2 Rare /HPF (0-2); URINE WBC-REFLEX None Seen /HPF (0-5)
--- NOTE | 2020-07-13 11:34 | EKG ---
[facility] [place] [address] ELECTROCARDIOGRAM REPORT Name: DAVID RUVALCABA Room #: PRE M.R.#: [id number] Admission: Attend Phys: Discharge: Date of : 46 Report #: [id number] THIS REPORT FOR: cc: Ash Beltran James A. DO Santiago, Patrick MD [facility] ~ THIS REPORT FOR: //name// [facility] ED Test Date: 2020-07-13 Test Time: 11:08:35 Pat Name: DAVID RUVALCABA Department: Room: Gender: F Traffic Clerk: : 1950 Requested By: Gregorio Lopez Order Number: [id number] MD: Vijay Watson Measurements Intervals [place] Rate: 66 P: 36 OK: 178 QRS: 5 QRSD: 82 T: 22 QT: 404 QTc: 424 Interpretive Statements Sinus rhythm Left atrial enlargement Baseline wander in lead(s) V6 Compared to ECG 08/30/2019 23:15:36 Atrial abnormality now present Atrial premature complex(es) no longer present Electronically Signed On 07-13-2020 11:34:00 FOOD SCIENCE PROFESSOR by Vijay Watson [email or web address] <ELECTRONICALLY SIGNED> By: Vijay Watson MD, FAC 07/13/20 1134 1108 1108 Vijay Watson MD, [facility] /EPI
[2020-07-13 12:03] LABS: ABSOLUTE NEUTROPHILS 7.4 thou/uL (1.4-8.2); BASOPHILS 0.7 % (0.0-2.0); EOSINOPHILS 1.3 % (0.0-3.0); HEMATOCRIT 32.9 % (37.0-47.0); HEMOGLOBIN 11.1 gm/dL (12.0-15.0); LYMPHOCYTES 29.8 % (24.0-44.0); MCH 32.1 pg (26.0-34.0); MCHC 33.7 g/dL (28.0-37.0); MCV 95.2 fL (80.0-100.0); MONOCYTES 6.6 % (1.0-8.0); PLATELET COUNT 308 thou/uL (150-400); POLYS 61.6 % (36.0-66.0); RBC 3.45 mil/uL (4.20-5.00); RDW 15.2 % (10.5-14.5)
[2020-07-13 12:07] LABS: ANION GAP 8 mmol/L (7-16); BUN 20 mg/dL (7-18); CALCIUM 9.6 mg/dL (8.5-10.1); CHLORIDE 100 mmol/L (98-107); CO2 28 mmol/L (21-32); CREATININE 1.1 mg/dL (0.6-1.0); GLUCOSE 84 mg/dL (74-106); POTASSIUM 3.2 mmol/L (3.5-5.1); SODIUM 136 mmol/L (136-145)
[2020-07-13 12:18] LABS: ALBUMIN 3.8 g/dL (3.4-5.0); SGOT 16 U/L (15-37); SGPT 23 U/L (30-65); TOTAL BILIRUBIN 0.3 mg/dL (0.2-1.0); TOTAL PROTEIN 7.6 g/dL (6.4-8.2); TROPONIN-I <0.06 ng/mL (<0.06)
[2020-07-13 15:27] VITALS: BP 108/64
== END 2020-07-13 15:28 | disposition home or self-care (01) ==
LOC: ER 09:48
PROVIDERS: Emergency Medicine
DX: R53.83 Other fatigue (principal); F17.210 Nicotine dependence, cigarettes, uncomplicated; Z90.49 Acquired absence of other specified parts of digestive tract; Z79.82 Long term (current) use of aspirin; Z79.899 Other long term (current) drug therapy; Z88.5 Allergy status to narcotic agent

== ENCOUNTER → 2020-09-10 | Outpatient (CLI) | payer MEDICARE | LOC: SJCVC 15:03 | PROVIDERS: ATTEND Internal Medicine Cardiovascular Disease | DX: R94.31 Abnormal electrocardiogram [ECG] [EKG] (principal); I51.7 Cardiomegaly; I25.10 Atherosclerotic heart disease of native coronary artery without angina pectoris; I10 Essential (primary) hypertension; E78.00 Pure hypercholesterolemia, unspecified; J44.9 Chronic obstructive pulmonary disease, unspecified; R06.00 Dyspnea, unspecified; I73.9 Peripheral vascular disease, unspecified; R52 Pain, unspecified; F17.200 Nicotine dependence, unspecified, uncomplicated; Z95.5 Presence of coronary angioplasty implant and graft; Z88.5 Allergy status to narcotic agent; Z88.8 Allergy status to other drugs, medicaments and biological substances; Z72.89 Other problems related to lifestyle ==

== ENCOUNTER 2020-09-29 11:47 | Emergency (ER) | payer MEDICARE ==
[~2020-09-29] VITALS: Ht 162.6 cm; Wt 68.5 kg
[2020-09-29 12:16] LABS: URINE BILIRUBIN NEGATIVE (Negative); URINE BLOOD 2+ (Negative); URINE CLARITY CLEAR; URINE COLOR YELLOW; URINE GLUCOSE-RANDOM* NEGATIVE (Negative); URINE KETONES NEGATIVE (Negative); URINE LEUKOCYTES-REFLEX NEGATIVE (Negative); URINE NITRITE-REFLEX NEGATIVE (Negative); URINE PROTEIN (DIPSTICK) NEGATIVE (Negative); URINE SPECIFIC GRAVITY <= 1.005 (1.005-1.035); URINE UROBILINOGEN 0.2 E.U./dl (0.2-1.0)
[2020-09-29 12:31] LABS: CASTS None Seen /LPF (None Seen); CRYSTALS None Seen /LPF (None Seen); SQUAMOUS 0-3 Few /LPF (0-3); URINE RBC 0-2 Rare /HPF (0-2); URINE WBC-REFLEX 0-5 Rare /HPF (0-5)
[2020-09-29 12:32] LABS: BACTERIA-REFLEX 1-9 Few /HPF (None Seen)
--- NOTE | 2020-09-29 13:53 | EKG ---
[place] [address] [facility] [place] [address] ELECTROCARDIOGRAM REPORT Name: DAVID RUVALCABA Room #: PRE [facility].R.#: [id number] Admission: Attend Phys: Discharge: Date of : 46 Report #: [id number] [facility] ED Test Date: 2020-09-29 Test Time: 11:58:27 Pat Name: DAVID RUVALCABA Department: Room: Gender: F Business Intelligence Administrator: : 1950 Requested By: Sophia Royal Order Number: [id number] MD: Vijay Watson Measurements Intervals [place] Rate: 82 P: 52 PA: 163 QRS: 10 QRSD: 85 T: 14 QT: 379 QTc: 443 Interpretive Statements Sinus rhythm LAE, consider biatrial enlargement Compared to ECG 07/13/2020 11:08:35 No significant changes Electronically Signed On 09-29-2020 13:52:53 RN INTEGRATED by Vijay Watson [email or web address] <ELECTRONICALLY SIGNED> By: Vijay Watson MD, [facility] 09/29/20 1352 1158 1158 Vijay Watson MD, FACC /EPI
[2020-09-29 15:27] LABS: ANION GAP 6 mmol/L (7-16); BUN 11 mg/dL (7-18); CALCIUM 8.9 mg/dL (8.5-10.1); CHLORIDE 102 mmol/L (98-107); CO2 28 mmol/L (21-32); CREATININE 0.7 mg/dL (0.6-1.0); GLUCOSE 101 mg/dL (74-106); POTASSIUM 3.5 mmol/L (3.5-5.1); SODIUM 136 mmol/L (136-145)
[2020-09-29 15:35] LABS: TROPONIN-I <0.06 ng/mL (<0.06)
[2020-09-29 17:18] LABS: ABSOLUTE NEUTROPHILS 5.3 thou/uL (1.4-8.2); BASOPHILS 1.2 % (0.0-2.0); EOSINOPHILS 2.4 % (0.0-3.0); HEMATOCRIT 30.9 % (37.0-47.0); HEMOGLOBIN 10.3 gm/dL (12.0-15.0); MCH 32.2 pg (26.0-34.0); MCHC 33.4 g/dL (28.0-37.0); MCV 96.4 fL (80.0-100.0); PLATELET COUNT 236 thou/uL (150-400); POLYS 62.4 % (36.0-66.0); RBC 3.21 mil/uL (4.20-5.00); RDW 15.8 % (10.5-14.5); WBC 8.4 thou/uL (4.0-11.0)
[2020-09-29 17:57] VITALS: BP 165/52
[2020-10-02] MEDS ORDERED: CYCLOBENZAPRINE5 MG PO (09:02)
[2020-10-02] MEDS ORDERED: SUPER THERAVIT1 EACH PO (09:03)
[2020-10-02] MEDS ORDERED: NITROSTAT0.4 M1 SUBLING (09:05)
[2020-10-02] MEDS ORDERED: SPIRIVA INH (09:06)
[2020-10-02] MEDS ORDERED: IMDUR 60 MG TAB60 M1 PO (11:13)
== END 2020-09-29 17:57 | disposition home or self-care (01) ==
LOC: ER 11:47
PROVIDERS: Emergency Medicine; Nurse Practitioner
DX: R55 Syncope and collapse (principal); R06.02 Shortness of breath; I73.9 Peripheral vascular disease, unspecified; F17.210 Nicotine dependence, cigarettes, uncomplicated; Z95.828 Presence of other vascular implants and grafts; Z90.49 Acquired absence of other specified parts of digestive tract; Z79.899 Other long term (current) drug therapy; Z79.82 Long term (current) use of aspirin; Z79.2 Long term (current) use of antibiotics; Z88.5 Allergy status to narcotic agent

== ENCOUNTER → 2020-09-30 | Outpatient (CLI) | payer MEDICARE ==
[~2020-09-30] MED LIST changes: +CYCLOBENZAPRINE5 MG PO; +IMDUR 60 MG TAB60 M1 PO; +NITROSTAT0.4 M1 SUBLING; +SPIRIVA INH; +SUPER THERAVIT1 EACH PO
== END ==
LOC: SJCVCIMAG 11:11
PROVIDERS: ATTEND Internal Medicine Cardiovascular Disease
DX: I25.10 Atherosclerotic heart disease of native coronary artery without angina pectoris (principal); I11.9 Hypertensive heart disease without heart failure; J44.9 Chronic obstructive pulmonary disease, unspecified; R94.31 Abnormal electrocardiogram [ECG] [EKG]; E78.00 Pure hypercholesterolemia, unspecified; I73.9 Peripheral vascular disease, unspecified; R42 Dizziness and giddiness; E78.5 Hyperlipidemia, unspecified; F17.200 Nicotine dependence, unspecified, uncomplicated; Z95.828 Presence of other vascular implants and grafts; Z90.49 Acquired absence of other specified parts of digestive tract; Z90.710 Acquired absence of both cervix and uterus; Z95.5 Presence of coronary angioplasty implant and graft; Z88.8 Allergy status to other drugs, medicaments and biological substances; Z79.82 Long term (current) use of aspirin; Z79.899 Other long term (current) drug therapy; Z82.49 Family history of ischemic heart disease and other diseases of the circulatory system

== ENCOUNTER → 2020-10-02 | Outpatient (CLI) | payer MEDICARE ==
[~2020-10-02] VITALS: Ht 162.6 cm; Wt 68.5 kg
[2020-10-02 08:57] LABS: HEMATOCRIT 34.7 % (37.0-47.0); HEMOGLOBIN 11.7 gm/dL (12.0-15.0); MCH 32.1 pg (26.0-34.0); MCHC 33.6 g/dL (28.0-37.0); MCV 95.3 fL (80.0-100.0); RBC 3.64 mil/uL (4.20-5.00); RDW 15.4 % (10.5-14.5); WBC 7.8 thou/uL (4.0-11.0)
[2020-10-02 09:05] LABS: CALCIUM 9.9 mg/dL (8.5-10.1); POTASSIUM 3.7 mmol/L (3.5-5.1)
--- NOTE | 2020-10-02 11:27 | CATHLAB ---
[facility] [place] [address] INVASIVE PROCEDURE REPORT Name: DAVID RUVALCABA Room #: REG CODY Brenda.#: [id number] Admission: 10/02/20 Attend Phys: Michael Gutiérrez MD Discharge: Date of : 48 Report #: [id number] THIS REPORT FOR: cc: Ash Beltran James A. DO Park, Jin S. MD ~ APPROVED REPORT Study performed: 10/02/2020 08:53:53 Patient Details Patient Status: Out-Patient Room #: The patient is a 70 year-old female Event Personnel Michale Gutiérrez Clearance Center Manager, , Samia Fajardo RN RN, Minnie Puentes RT(R)() Monitor, Travon Woody RTR Scrub Procedures Performed Art Access - R femoral artery* Left Heart Cath w/or w/o Coronaries [id number] [facility] Hemostasis with Manual pressure 84309 Initial Mod Sed Same Phys/QHP Gr5y 387100 01578 Mod Sed Same Phys/QHP Ea [id number] Indication Dyspnea, Chest pain Risk Factors Hypercholesterolemia, Coronary Artery DiseaseHypertension, Tobacco History () Previous Procedures/Diagnoses Previous PCI, Previous UT Procedure Narrative The Right Groin^ was infiltrated with 1% Lidocaine subcutaneous anesthesia. A PINNACLE 4FR Sheath #[id number] sheath was inserted into the RFA 4F^. Coronary angiography was performed using coronary diagnostic catheters. The right coronary system was accessed and visualized with a JR4 catheter. The left coronary system was accessed and visualized with a JL4 catheter. The left ventricle was accessed and visualized with a PIGTAIL catheter. Hemostasis was obtained with manual pressure following sheath removal without any complications. The patient tolerated the procedure well and there were no [facility] [address] [place] [address] INVASIVE PROCEDURE REPORT Name: DAVID RUVALCABA Room #: REG [facility]#: [id number] Admission: 10/02/20 Attend Phys: Michael Gutiérrez MD Discharge: Date of : 48 Report #: [id number] complications associated with the procedure. There was no hematoma. Intraoperative Conscious Sedation Fentanyl 100 mcg Versed 1 mg Fluoro Time: 2.03 minutes Dose: DAP 2172.40 cGycm2 Contrast Type and Amount: Omnipaque 55 ml Coronary Angiography The patient's coronary anatomy is co- dominant. Diagnostic Cath Left Main The left main artery is a large-caliber vessel, patent with no flow-limiting lesions. LAD The LAD is a moderate-sized caliber vessel, traversing the anterior wall and wraps around the apex. There is mild disease in the proximal segment, 30%. Diagonal 1 This is a small to moderate-sized caliber vessel with a moderate stenosis at the ostium, 40%. Circumflex The left circumflex artery is a codominant vessel with mild disease in the proximal segment, 30%. OM1 This is a small to modest sized caliber vessel, patent with no flow-limiting lesions. OM2 This is a moderate-sized caliber vessel, patent with no flow-limiting lesions. OM3 This is a moderate-sized caliber vessel, patent with no flow-limiting lesions. Right Coronary There are multiple overlapping stents in the RCA with a total occlusion. R PDA The PDA is filled via collateral blood flow from the left coronary artery. Left Ventriculography The left ventricle is normal in size with normal contractility. The left ventricular ejection fraction is estimated to be 60%. Hemodynamics The aortic pressure is 143/52 mmHg with a mean of 75 mmHg. The left ventricular pressure is 150/11 mmHg with a mean of mmHg. The left ventricular end diastolic pressure is 25 mmHg. Conclusion 1. There is mild to moderate disease in the LAD and codominant left [facility] [address] [address] INVASIVE PROCEDURE REPORT Name: DAVID RUVALCABA Room #: REG CL [facility]#: [id number] Admission: 10/02/20 Attend Phys: Michael Gutiérrez MD Discharge: Date of : 46 Report #: [id number] circumflex artery. 2. There is a total occlusion in the RCA, the PDA is filled via collateral blood flow from the left coronary artery. 3. There is normal LV systolic function. 4. Recommend guideline directed medical therapy and aggressive risk factor management. <ELECTRONICALLY SIGNED> By: Michael Gutéirrez MD 10/02/207 26 26 Michael Gutiérrez MD /INF
== END ==
LOC: CATH 06:42
PROVIDERS: ATTEND Internal Medicine Cardiovascular Disease
DX: I25.118 Atherosclerotic heart disease of native coronary artery with other forms of angina pectoris (principal); I25.82 Chronic total occlusion of coronary artery; I10 Essential (primary) hypertension; E78.00 Pure hypercholesterolemia, unspecified; E78.5 Hyperlipidemia, unspecified; F17.210 Nicotine dependence, cigarettes, uncomplicated; I73.9 Peripheral vascular disease, unspecified; Z90.49 Acquired absence of other specified parts of digestive tract; Z95.5 Presence of coronary angioplasty implant and graft; Z90.710 Acquired absence of both cervix and uterus; K08.409 Partial loss of teeth, unspecified cause, unspecified class; Z79.82 Long term (current) use of aspirin; Z79.899 Other long term (current) drug therapy; R35.8 Other polyuria; Z88.6 Allergy status to analgesic agent; Z82.49 Family history of ischemic heart disease and other diseases of the circulatory system; Z88.8 Allergy status to other drugs, medicaments and biological substances

== ENCOUNTER → 2020-10-16 | Outpatient (CLI) | payer MEDICARE | LOC: SJCVC 09:56 | PROVIDERS: ATTEND Internal Medicine Cardiovascular Disease | DX: I11.9 Hypertensive heart disease without heart failure (principal); R94.31 Abnormal electrocardiogram [ECG] [EKG]; I25.10 Atherosclerotic heart disease of native coronary artery without angina pectoris; E78.00 Pure hypercholesterolemia, unspecified; F17.210 Nicotine dependence, cigarettes, uncomplicated; Z79.82 Long term (current) use of aspirin; Z79.899 Other long term (current) drug therapy; Z98.61 Coronary angioplasty status ==

== ENCOUNTER → 2020-11-09 | Outpatient (CLI) | payer MEDICARE | LOC: CAT 10:17 | PROVIDERS: ATTEND Family Medicine | DX: R31.9 Hematuria, unspecified (principal); R10.9 Unspecified abdominal pain; J90 Pleural effusion, not elsewhere classified; J98.11 Atelectasis ==

== ENCOUNTER 2020-12-01 20:26 | Inpatient (IN) | payer MEDICARE ==
[~2020-12-01] VITALS: Ht 162.6 cm; Wt 66.2 kg
[2020-12-01 20:42] VITALS: BP 243/100
[2020-12-01 21:06] LABS: ABSOLUTE NEUTROPHILS 5.9 thou/uL (1.4-8.2); EOSINOPHILS 3.4 % (0.0-3.0); HEMATOCRIT 31.3 % (37.0-47.0); HEMOGLOBIN 10.6 gm/dL (12.0-15.0); LYMPHOCYTES 23.8 % (24.0-44.0); MCH 31.6 pg (26.0-34.0); MCHC 33.7 g/dL (28.0-37.0); MCV 93.8 fL (80.0-100.0); MONOCYTES 8.1 % (1.0-8.0); PLATELET COUNT 261 thou/uL (150-400); POLYS 63.7 % (36.0-66.0); RBC 3.34 mil/uL (4.20-5.00); RDW 15.9 % (10.5-14.5); WBC 9.3 thou/uL (4.0-11.0)
[2020-12-01 21:17] LABS: ANION GAP 8 mmol/L (7-16); BUN 9 mg/dL (7-18); CALCIUM 9.3 mg/dL (8.5-10.1); CHLORIDE 102 mmol/L (98-107); CO2 26 mmol/L (21-32); CREATININE 0.9 mg/dL (0.6-1.0); GLUCOSE 119 mg/dL (74-106); POTASSIUM 3.2 mmol/L (3.5-5.1); SODIUM 136 mmol/L (136-145)
[2020-12-01 21:25] LABS: TROPONIN-I <0.06 ng/mL (<0.06)
[2020-12-01 23:51] VITALS: BP 219/76
[2020-12-02] VITALS (8 sets, daily range): BP systolic 168–188; BP diastolic 61–79
[2020-12-02] MEDS ORDERED: CARVEDILOL25 MG PO (02:16)
--- NOTE | 2020-12-02 07:35 | NUR ---
ASSUME CARE 0100. PT STABLE. BP RUNS HIGH. BP MEDS REVIEWED AND STARTED. PT DENIES ANY PAIN. GOOD ENDURANCE WITH ACTIVITY. NO DISTRESS NOTED. ASSESSMENT CHARTED. PLAN IS TO MONITOR AND MANAGE BLOOD PRESSURE. POSSIBLE DISCHARGE WITHIN THE NEXT FEW DAYS. WILL CONTINUE TO MONITOR AND FOLLOW WITH POC
--- NOTE | 2020-12-02 07:40 | EKG ---
[facility] [place] [address] ELECTROCARDIOGRAM REPORT Name: DAVID RUVALCABA Room #: 219-P ADM IN M.R.#: [id number] Admission: 12/01/20 Attend Phys: Soraida Weir Discharge: Date of : 48 Report #: [id number] [facility] ED Test Date: 2020-12-01 Test Time: 20:39:51 Pat Name: DAVID RUVALCABA Department: Room: 219 Gender: F Vp Publisher Development: jenny : 1950 Requested By: Sadi Chapman Order Number: [id number] MD: Vijay Watson Measurements Intervals [place] Rate: 80 P: 38 CA: 161 QRS: -4 QRSD: 88 T: 15 QT: 387 QTc: 447 Interpretive Statements Sinus rhythm LAE, consider biatrial enlargement Probable left ventricular hypertrophy Baseline wander in lead(s) V6 Compared to ECG 09/29/2020 11:58:27 No significant changes Electronically Signed On 12-02-2020 7:40:45 CDT by Vijay Watson [email or web address] <ELECTRONICALLY SIGNED> By: Vijay Watson MD, [facility] 12/02/20 0740 38 38 Vijay Watson MD, [facility] /EPI
[2020-12-02 09:48] LABS: CHOLESTEROL 146 mg/dL (<200); HDL CHOLESTEROL 46 mg/dL (>40); LDL CHOLESTEROL 87 mg/dL (<100); TC:HDL 3.2 Ratio (Not establshd); TRIGLYCERIDE 69 mg/dL (<150); VLDL 14 mg/dL (<40)
--- NOTE | 2020-12-02 17:48 | NUR ---
Met with patient she reside in independent home all needs on one level. She uses a cane as needed. She cont to drive. She reports independent with adls captain assistant. PCP Dr Casper. she does not anticipate dc needs. Casemgt following
--- NOTE | 2020-12-02 19:41 | NUR ---
BP REMAINS HIGH; PROVIDER NOTIFIED AND NO INTERVENTION IS NECESSARY AT THIS TIME. PT IS STABLE AND IS LOOKING FORWARD TO DC IN A COUPLE OF DAYS.
[2020-12-02 22:26] LABS: URINE BILIRUBIN NEGATIVE (Negative); URINE BLOOD 1+ (Negative); URINE CLARITY CLEAR; URINE COLOR YELLOW; URINE GLUCOSE-RANDOM* NEGATIVE (Negative); URINE KETONES NEGATIVE (Negative); URINE LEUKOCYTES-REFLEX NEGATIVE (Negative); URINE NITRITE-REFLEX NEGATIVE (Negative); URINE PROTEIN (DIPSTICK) TRACE (Negative); URINE UROBILINOGEN 0.2 E.U./dl (0.2-1.0)
[2020-12-02 22:40] LABS: BACTERIA-REFLEX None Seen /HPF (None Seen); CASTS None Seen /LPF (None Seen); CRYSTALS None Seen /LPF (None Seen); MUCUS 0-3 Light strn/LPF (None Seen); SQUAMOUS 4-10 Moderate /LPF (0-3); URINE RBC 3-10 Few /HPF (0-2); URINE WBC-REFLEX 0-5 Rare /HPF (0-5)
--- NOTE | 2020-12-02 23:36 | NUR ---
INITIAL VITAL SIGNS SHOWED PATIENT HYPERTENSIVE. CHILD CUSTODY EVALUATOR CONTACTED WITH ORDERS FOR PRN MEDICATION.
[2020-12-03 04:52] VITALS: BP 156/64
[2020-12-03 06:02] LABS: CALCIUM 9.1 mg/dL (8.5-10.1); CREATININE 0.9 mg/dL (0.6-1.0); POTASSIUM 3.4 mmol/L (3.5-5.1)
[2020-12-03 07:42] VITALS: BP 174/62
[2020-12-03] MEDS ORDERED: SPIRONOLACTONE25 M1 PO (11:50)
[2020-12-03] MEDS ORDERED: NORVASC10 MG PO (11:50)
[2020-12-03 13:40] VITALS: BP 148/59
[2020-12-03 14:46] VITALS: BP 148/59
--- NOTE | 2020-12-03 15:20 | NUR ---
ASSUMED CARE OF PT AT SHIFT CHANGE. ASSESSMENT CHARTED. MEDS GIVEN PER NOV. PT A&OX4, NO C/O PAIN. BP STABLE AT LAST CHECK. DISCHARGE ORDERS AND INSTRUCTIONS COMPLETE. IV AND TELE DC'D. PT TAKEN VIA WHEELCHAIR TO ENTRANCE TO FAMILY WAITING IN CAR.
[2020-12-03 16:25] VITALS: BP 148/59
== END 2020-12-03 15:49 | disposition home or self-care (01) | DRG 305 ==
LOC: ER 20:26 → EROBS 23:36 → 2N 23:36
PROVIDERS: Hospitalist; Nurse Practitioner; ADMIT Hospitalist; ATTEND Hospitalist
DX: I16.1 Hypertensive emergency (principal); I42.9 Cardiomyopathy, unspecified; E78.5 Hyperlipidemia, unspecified; I25.10 Atherosclerotic heart disease of native coronary artery without angina pectoris; I73.9 Peripheral vascular disease, unspecified; E78.00 Pure hypercholesterolemia, unspecified; I10 Essential (primary) hypertension; F17.210 Nicotine dependence, cigarettes, uncomplicated; E87.6 Hypokalemia; E83.42 Hypomagnesemia; R53.81 Other malaise; J44.9 Chronic obstructive pulmonary disease, unspecified; Z82.49 Family history of ischemic heart disease and other diseases of the circulatory system; Z95.820 Peripheral vascular angioplasty status with implants and grafts; Z90.710 Acquired absence of both cervix and uterus; Z90.49 Acquired absence of other specified parts of digestive tract; Z95.5 Presence of coronary angioplasty implant and graft; Z88.6 Allergy status to analgesic agent; Z88.8 Allergy status to other drugs, medicaments and biological substances; Z84.1 Family history of disorders of kidney and ureter; Z71.6 Tobacco abuse counseling; Z79.82 Long term (current) use of aspirin; Z79.899 Other long term (current) drug therapy
CPT/HCPCS: 10081

== ENCOUNTER 2020-12-09 22:20 | Emergency (ER) | payer MEDICARE ==
[~2020-12-09] VITALS: Ht 162.6 cm; Wt 67.1 kg
--- NOTE | ~2020-12-09 | EMS ---
[address] [address] EMS Patient Care Report Name: DAVID RUVALCABA Room #: REG ELAN Mendoza#: [id number] Admission: 12/09/20 Attend Phys: Discharge: Date of : 46 Report #: [id number] THIS REPORT FOR: //name// Report Transmitted: 12/09/2020 22:05 EMS Care Summary [place], [place]/[facility] Incident [id number] @ 12/09/2020 21:37 Incident Location [id number] [place], [place] [id number] Patient DAVID RUVALCABA Female, 70 Years 1950 Patient Address Patient History Chronic Obstructive Pulmonary Disease (COPD),Cardiac - Stent, Patient Allergies Codeine,Morphine, Patient Medications Isosorbide, Spironolactone, Amlodipine, Chief Complaint HTN Disposition Transported No Lights/[place] Dispatch Reason Sick Person Transported To [facility] Narrative RESPONDED TO SICK AT HOME. UPON ARRIVAL PT FOUND SITTING ON CHAIR ALERT AND ORIENTED. PT REPORTS SHE HAS BEEN MONITORING HER BLOOD PRESSURE AND IT HAS BEEN HIGH. PT IS WORRIED AND ANXIOUS BUT DENIES ANY OTHER COMPLAINTS. PT VITALS OBTAINED. PT DENIES CHEST PAIN BUT 12 LEAD GIVEN TO PT PER HER REQUEST. 12 LEAD APPEARS NORMAL SINUS, NO ST ELEVATION/DEPRESSION. PT WANTED TO BE TRANSPORTED VIA EMS TO [facility]. PT WALKED TO AMBULANCE AND SAT ON BENCHSEAT WITH [address] [address] EMS Patient Care Report Name: DAVID RUVALCABA Room #: REG [facility].R.#: [id number] Admission: 12/09/20 Attend Phys: Discharge: Date of : 46 Report #: [id number] [facility]. PT TRANSPORTED WITH NO CHANGES. PT WALKED TO ED RM 7 AND REPORT GIVEN TO NURSE. Initial Vitals @21:51P: 74,CO: 4,SpO2: 97,AL Suspected: false @21:54P: 75,R: 18,BP: 201/79,CO: 5,SpO2: 99, @21:47P: 86,R: 18,BP: 222/98,Pain: 0/10,GCS: 15,SpO2: 100,Revised Trauma: 12, Assessments @22:12MENTAL:Person Oriented,Time Oriented,Place Oriented,Event Oriented,SKIN:HEENT:Head/Face: No Abnormalities,Eyes: No Abnormalities,Neck/Airway: No Abnormalities,LUNG SOUNDS:General: No Abnormalities,Left Upper: No Abnormalities,Right Upper: No Abnormalities,Left Lower: No Abnormalities,Right Lower: No Abnormalities,ABDOMEN:General: No Abnormalities,Left Upper: No Abnormalities,Right Upper: No Abnormalities,Left Lower: No Abnormalities,Right Lower: No Abnormalities,PELVIS//GI:No Abnormalities,EXTREMITIES:Left Arm: No Abnormalities,Right Arm: No Abnormalities,Left Leg: No Abnormalities,Right Leg: No Abnormalities,PULSE:NEURO:No Abnormalities, Impression Hypertension Procedures @21:5112-Lead ECGResponse: UnchangedSucceeded Timeline 21:36,Call Received 21:36,Dispatch Notified 21:37,Dispatched 21:37,En Route 21:47,On Scene 21:47,At Patient 21:47,BP: 222/98 M,PULSE: 86,RR: 18 R,SPO2: 100 Ox,ETCO2: ,BG: ,PAIN: 0,GCS: 15, 21:51,12-Lead ECG,Response: UnchangedSucceeded, 21:51,BP: / M,PULSE: 74,RR: R,SPO2: 97 Ox,ETCO2: ,BG: ,PAIN: ,GCS: , 21:54,BP: 201/79 M,PULSE: 75,RR: 18 R,SPO2: 99 Ox,ETCO2: ,BG: ,PAIN: ,GCS: , 22:05,Depart Scene 22:28,At Destination 22:41,Call Closed Disclaimer v1.1 Copyright 2020 [employer] This EMS Care Summary contains data elements from the applicable legal record (which may be displayed differently). It is designed to provide pertinent [address] [address] EMS Patient Care Report Name: DAVID RUVALCABA Room #: REG ELAN Mendoza#: [id number] Admission: 12/09/20 Attend Phys: Discharge: Date of : 46 Report #: [id number] information for the following purposes: continuity of care, clinical quality, and state data reporting. The complete legal record is available to ED staff and administrators of the receiving hospital in ES's Patient Tracker. All data is provided "as is."
[~2020-12-09 22:20] MED LIST changes: +CARVEDILOL25 MG PO; +NORVASC10 MG PO; +SPIRONOLACTONE25 M1 PO
[2020-12-09 22:55] LABS: ABSOLUTE NEUTROPHILS 5.8 thou/uL (1.4-8.2); BASOPHILS 0.7 % (0.0-2.0); HEMATOCRIT 31.8 % (37.0-47.0); HEMOGLOBIN 10.8 gm/dL (12.0-15.0); LYMPHOCYTES 26.1 % (24.0-44.0); MCH 31.3 pg (26.0-34.0); MCHC 33.9 g/dL (28.0-37.0); MCV 92.3 fL (80.0-100.0); MONOCYTES 8.2 % (1.0-8.0); PLATELET COUNT 295 thou/uL (150-400); RBC 3.45 mil/uL (4.20-5.00); RDW 15.7 % (10.5-14.5); WBC 9.4 thou/uL (4.0-11.0)
[2020-12-09 22:58] LABS: CALCIUM 9.8 mg/dL (8.5-10.1); CREATININE 1.1 mg/dL (0.6-1.0); POTASSIUM 3.5 mmol/L (3.5-5.1)
[2020-12-10] VITALS: BP 148/55
--- NOTE | 2020-12-10 07:02 | EKG ---
[place] [address] [facility] [facility] [place] [address] ELECTROCARDIOGRAM REPORT Name: DAVID RUVALCABA [facility] [id number] Admission: 12/09/20 Attend Phys: Discharge: 12/10/20 Date of : 46 Report #: [id number] [facility] ED Test Date: 2020-12-09 Test Time: 22:43:24 Pat Name: DAVID RUVALCABA Department: Room: Gender: F As400 Analyst: SHEA : 1950 Requested By: Jose Manuel Naidu Order Number: [id number] MD: Vijay Watson Measurements Intervals [place] Rate: 69 P: 41 CO: 175 QRS: 3 QRSD: 94 T: 20 QT: 406 QTc: 435 Interpretive Statements Sinus rhythm Left atrial enlargement Probable left ventricular hypertrophy Compared to ECG 12/01/2020 20:39:51 No significant changes Electronically Signed On 12-10-2020 7:02:29 CDT by Vijay Watson [email or web address] <ELECTRONICALLY SIGNED> By: Vijay Watson MD, [facility] 12/10/20 07 2243 2243 Vijay Watson MD, FACC /EPI
== END 2020-12-10 00:01 | disposition home or self-care (01) ==
LOC: ER 22:20
PROVIDERS: Emergency Medicine
DX: I10 Essential (primary) hypertension (principal); I25.10 Atherosclerotic heart disease of native coronary artery without angina pectoris; E78.5 Hyperlipidemia, unspecified; F17.210 Nicotine dependence, cigarettes, uncomplicated; Z90.49 Acquired absence of other specified parts of digestive tract; Z79.899 Other long term (current) drug therapy; Z79.82 Long term (current) use of aspirin; Z88.5 Allergy status to narcotic agent; Z88.8 Allergy status to other drugs, medicaments and biological substances

== ENCOUNTER → 2021-01-08 | Outpatient (CLI) | payer MEDICARE | LOC: SJCVC 11:37 | PROVIDERS: ATTEND Internal Medicine Cardiovascular Disease | DX: R94.31 Abnormal electrocardiogram [ECG] [EKG] (principal); I25.10 Atherosclerotic heart disease of native coronary artery without angina pectoris; I10 Essential (primary) hypertension; E78.00 Pure hypercholesterolemia, unspecified; I73.9 Peripheral vascular disease, unspecified; F17.200 Nicotine dependence, unspecified, uncomplicated; Z72.89 Other problems related to lifestyle; Z79.899 Other long term (current) drug therapy; Z79.82 Long term (current) use of aspirin; Z88.5 Allergy status to narcotic agent; Z88.1 Allergy status to other antibiotic agents; Z88.8 Allergy status to other drugs, medicaments and biological substances ==

== ENCOUNTER → 2021-01-15 | Outpatient (CLI) | payer MEDICARE | LOC: SJCVCIMAG 11:31 | PROVIDERS: ATTEND Nuclear Medicine Nuclear Cardiology | DX: I70.201 Unspecified atherosclerosis of native arteries of extremities, right leg (principal); M79.661 Pain in right lower leg; M79.662 Pain in left lower leg ==

== ENCOUNTER → 2021-01-19 | Outpatient (CLI) | payer MEDICARE | LOC: SJCVCIMAG 10:15 | PROVIDERS: ATTEND Nuclear Medicine Nuclear Cardiology | DX: I70.202 Unspecified atherosclerosis of native arteries of extremities, left leg (principal); I25.10 Atherosclerotic heart disease of native coronary artery without angina pectoris; I10 Essential (primary) hypertension; J44.9 Chronic obstructive pulmonary disease, unspecified; E78.00 Pure hypercholesterolemia, unspecified; F17.200 Nicotine dependence, unspecified, uncomplicated; Z95.820 Peripheral vascular angioplasty status with implants and grafts; Z79.899 Other long term (current) drug therapy; Z72.89 Other problems related to lifestyle; Z79.82 Long term (current) use of aspirin; Z88.5 Allergy status to narcotic agent; Z88.8 Allergy status to other drugs, medicaments and biological substances; Z88.1 Allergy status to other antibiotic agents ==

== ENCOUNTER → 2021-01-22 | Outpatient (CLI) | payer MEDICARE ==
[~2021-01-22] VITALS: Ht 162.6 cm; Wt 66.7 kg
[~2021-01-22] MED LIST changes: +DOXYCYCLINE 10100 MG PO; +LIVALO1 MG PO
[2021-01-22 07:33] VITALS: BP 152/62
[2021-01-22 07:47] LABS: HEMATOCRIT 32.5 % (37.0-47.0); HEMOGLOBIN 11.1 gm/dL (12.0-15.0); MCH 31.2 pg (26.0-34.0); MCHC 34.3 g/dL (28.0-37.0); MCV 90.9 fL (80.0-100.0); RBC 3.57 mil/uL (4.20-5.00); RDW 17.4 % (10.5-14.5); WBC 7.5 thou/uL (4.0-11.0)
[2021-01-22 07:54] LABS: CALCIUM 9.5 mg/dL (8.5-10.1); POTASSIUM 3.2 mmol/L (3.5-5.1)
--- NOTE | 2021-01-22 10:25 | NUR ---
PT DENIES CHEST PAIN AT THIS TIME
--- NOTE | 2021-01-22 11:37 | EKG ---
[place] [address] [facility] [place] [address] ELECTROCARDIOGRAM REPORT Name: DAVID RUVALCABA Room #: REG [facility]#: [id number] Admission: 01/22/21 Attend Phys: Ranjith Saleh MD Discharge: Date of : 46 Report #: [id number] [facility] Test Date: 2021-01-22 Test Time: 09:54:13 Pat Name: DAVID RUVALCABA Department: Room: Gender: F Drosophere Operator[facility] 1950 Requested By: Ranjith Saleh Order Number: [id number] MD: Vijay Watson Measurements Intervals [place] Rate: 83 P: 65 ND: 181 QRS: -1 QRSD: 82 T: 51 QT: 477 QTc: 561 Interpretive Statements Sinus rhythm Consider right atrial enlargement Probable LVH with secondary repol abnrm Prolonged QT interval Compared to ECG 12/09/2020 22:43:24 Prolonged QT interval now present Electronically Signed On 01-22-2021 11:37:12 CDT by Vijay Watson [email or web address] <ELECTRONICALLY SIGNED> By: Vijay Watson MD, [facility] 01/22/21 1137 0954 0954 Vijay Watson MD, [facility] /EPI
== END | disposition home or self-care (01) ==
LOC: CATH 06:41
PROVIDERS: ATTEND Nuclear Medicine Nuclear Cardiology
DX: I70.212 Atherosclerosis of native arteries of extremities with intermittent claudication, left leg (principal); I70.1 Atherosclerosis of renal artery; I25.10 Atherosclerotic heart disease of native coronary artery without angina pectoris; I10 Essential (primary) hypertension; E78.00 Pure hypercholesterolemia, unspecified; F17.210 Nicotine dependence, cigarettes, uncomplicated; Z98.890 Other specified postprocedural states; Z79.899 Other long term (current) drug therapy; Z90.710 Acquired absence of both cervix and uterus; Z90.49 Acquired absence of other specified parts of digestive tract; Z98.0 Intestinal bypass and anastomosis status; Z88.5 Allergy status to narcotic agent; Z88.8 Allergy status to other drugs, medicaments and biological substances

== ENCOUNTER → 2021-01-25 | Outpatient (CLI) | payer MEDICARE | LOC: SJCVCIMAG 13:53 | PROVIDERS: ATTEND Nuclear Medicine Nuclear Cardiology | DX: L76.32 Postprocedural hematoma of skin and subcutaneous tissue following other procedure (principal); R10.32 Left lower quadrant pain; R19.09 Other intra-abdominal and pelvic swelling, mass and lump; M79.605 Pain in left leg; Z90.710 Acquired absence of both cervix and uterus; Z98.890 Other specified postprocedural states; Z79.82 Long term (current) use of aspirin; Z79.899 Other long term (current) drug therapy ==

== ENCOUNTER 2021-01-26 19:24 | Emergency (ER) | payer MEDICARE ==
[~2021-01-26] VITALS: Ht 162.6 cm; Wt 66.7 kg
[~2021-01-26 19:24] MED LIST changes: -DOXYCYCLINE 10100 MG PO
[2021-01-26 20:14] LABS: ABSOLUTE NEUTROPHILS 6.7 thou/uL (1.4-8.2); BASOPHILS 1.1 % (0.0-2.0); EOSINOPHILS 2.6 % (0.0-3.0); HEMATOCRIT 27.7 % (37.0-47.0); HEMOGLOBIN 9.4 gm/dL (12.0-15.0); LYMPHOCYTES 19.9 % (24.0-44.0); MCH 30.8 pg (26.0-34.0); MCV 90.6 fL (80.0-100.0); MONOCYTES 10.3 % (1.0-8.0); PLATELET COUNT 246 thou/uL (150-400); POLYS 66.1 % (36.0-66.0); RBC 3.06 mil/uL (4.20-5.00); RDW 17.8 % (10.5-14.5); WBC 10.2 thou/uL (4.0-11.0)
[2021-01-26 20:23] LABS: ANION GAP 9 mmol/L (7-16); BUN 16 mg/dL (7-18); CALCIUM 9.3 mg/dL (8.5-10.1); CHLORIDE 102 mmol/L (98-107); CO2 24 mmol/L (21-32); GLUCOSE 105 mg/dL (74-106); POTASSIUM 3.8 mmol/L (3.5-5.1); SODIUM 135 mmol/L (136-145)
[2021-01-26 20:29] LABS: ALBUMIN 2.8 g/dL (3.4-5.0); DIRECT BILIRUBIN < 0.1 mg/dL (<0.1-0.2); LIPASE 175 U/L (73-393); SGOT 15 U/L (15-37); SGPT 17 U/L (14-59); TOTAL BILIRUBIN 0.2 mg/dL (0.2-1.0); TOTAL PROTEIN 7.3 g/dL (6.4-8.2)
[2021-01-26] MEDS ORDERED: DOXYCYCLINE 10100 MG PO (21:08)
[2021-01-26 21:24] VITALS: BP 123/66
== END 2021-01-26 21:26 | disposition home or self-care (01) ==
LOC: ER 19:24
PROVIDERS: Nurse Practitioner
DX: L03.314 Cellulitis of groin (principal); L03.115 Cellulitis of right lower limb; F17.210 Nicotine dependence, cigarettes, uncomplicated; I10 Essential (primary) hypertension; E78.00 Pure hypercholesterolemia, unspecified; I25.10 Atherosclerotic heart disease of native coronary artery without angina pectoris; I73.9 Peripheral vascular disease, unspecified; Z90.49 Acquired absence of other specified parts of digestive tract; Z95.828 Presence of other vascular implants and grafts; Z95.5 Presence of coronary angioplasty implant and graft; Z90.711 Acquired absence of uterus with remaining cervical stump; Z79.899 Other long term (current) drug therapy; Z79.82 Long term (current) use of aspirin; Z88.8 Allergy status to other drugs, medicaments and biological substances; Z88.5 Allergy status to narcotic agent

== ENCOUNTER → 2021-02-19 | Outpatient (CLI) | payer MEDICARE ==
[~2021-02-19] MED LIST changes: +DOXYCYCLINE 10100 MG PO
== END ==
LOC: SJCVCIMAG 11:45
PROVIDERS: ATTEND Internal Medicine Cardiovascular Disease
DX: R94.31 Abnormal electrocardiogram [ECG] [EKG] (principal); I11.9 Hypertensive heart disease without heart failure; M79.605 Pain in left leg; M79.89 Other specified soft tissue disorders; I25.10 Atherosclerotic heart disease of native coronary artery without angina pectoris; I73.9 Peripheral vascular disease, unspecified; I42.9 Cardiomyopathy, unspecified; E78.5 Hyperlipidemia, unspecified; F17.200 Nicotine dependence, unspecified, uncomplicated; Z88.5 Allergy status to narcotic agent; Z88.8 Allergy status to other drugs, medicaments and biological substances; Z90.49 Acquired absence of other specified parts of digestive tract; Z95.5 Presence of coronary angioplasty implant and graft; Z90.710 Acquired absence of both cervix and uterus; Z79.82 Long term (current) use of aspirin; Z79.899 Other long term (current) drug therapy; Z82.49 Family history of ischemic heart disease and other diseases of the circulatory system

== ENCOUNTER 2021-07-26 14:34 | Emergency (ER) | payer OTHER, MEDICARE ==
[~2021-07-26] VITALS: Ht 162.6 cm; Wt 68.0 kg
[2021-07-26 17:05] VITALS: BP 134/65
== END 2021-07-26 17:17 | disposition home or self-care (01) ==
LOC: ER 14:34
DX: M25.512 Pain in left shoulder (principal); I73.9 Peripheral vascular disease, unspecified; I42.9 Cardiomyopathy, unspecified; I25.10 Atherosclerotic heart disease of native coronary artery without angina pectoris; I10 Essential (primary) hypertension; E78.00 Pure hypercholesterolemia, unspecified; F17.210 Nicotine dependence, cigarettes, uncomplicated; Z90.710 Acquired absence of both cervix and uterus; Z90.49 Acquired absence of other specified parts of digestive tract; Z90.89 Acquired absence of other organs; Z79.1 Long term (current) use of non-steroidal anti-inflammatories (NSAID); Z79.891 Long term (current) use of opiate analgesic; Z79.899 Other long term (current) drug therapy; Z79.82 Long term (current) use of aspirin; Z79.51 Long term (current) use of inhaled steroids; Z88.6 Allergy status to analgesic agent; Z88.5 Allergy status to narcotic agent; Z88.8 Allergy status to other drugs, medicaments and biological substances; V49.3XXA Car occupant (driver) (passenger) injured in unspecified nontraffic accident, initial encounter; Y93.89 Activity, other specified; Y92.89 Other specified places as the place of occurrence of the external cause; Y99.8 Other external cause status

== ENCOUNTER → 2021-08-12 | Outpatient (CLI) | payer MEDICARE | LOC: CAT 10:15 | PROVIDERS: ATTEND Internal Medicine | DX: Z12.2 Encounter for screening for malignant neoplasm of respiratory organs (principal); Z87.891 Personal history of nicotine dependence ==

== ENCOUNTER → 2021-08-20 | Outpatient (CLI) | payer MEDICARE | LOC: NUC 09:22 | PROVIDERS: ATTEND Nurse Practitioner | DX: M85.88 Other specified disorders of bone density and structure, other site (principal) ==

== ENCOUNTER → 2021-08-23 | Outpatient (CLI) | payer MEDICARE | LOC: SJCVC 10:12 | PROVIDERS: ATTEND Internal Medicine Cardiovascular Disease | DX: R94.31 Abnormal electrocardiogram [ECG] [EKG] (principal); I11.9 Hypertensive heart disease without heart failure; I25.10 Atherosclerotic heart disease of native coronary artery without angina pectoris; E78.00 Pure hypercholesterolemia, unspecified; I73.9 Peripheral vascular disease, unspecified; E78.5 Hyperlipidemia, unspecified; F17.200 Nicotine dependence, unspecified, uncomplicated; Z88.6 Allergy status to analgesic agent; Z88.8 Allergy status to other drugs, medicaments and biological substances; Z79.82 Long term (current) use of aspirin; Z79.899 Other long term (current) drug therapy; Z72.89 Other problems related to lifestyle ==